=== PATIENT | female | born 1975 | race Hispanic/Latino ===

== ENCOUNTER 2022-09-27 12:09 | Emergency (ER) | payer BC, OTHER ==
[~2022-09-27] VITALS: Ht 157.5 cm; Wt 81.6 kg
[2022-09-27 12:14] VITALS: BP 134/110
[2022-09-27] MEDS ORDERED: D-ME118S47 PO (15:37)
[2022-09-27] MEDS ORDERED: LORA10TA7 PO (15:37)
== END 2022-09-27 15:59 | disposition home or self-care (01) ==
LOC: EDH 12:09
DX: J06.9 Acute upper respiratory infection, unspecified (principal); R05.9 Cough, unspecified; Z20.822 Contact with and (suspected) exposure to COVID-19; Z79.899 Other long term (current) drug therapy; Z90.710 Acquired absence of both cervix and uterus
CPT/HCPCS: 99283; 87635; 87804 ×2; C9803